=== PATIENT | male | born 1950 | race Hispanic/Latino ===

== ENCOUNTER → 2020-06-05 | Outpatient (CLI) | payer MEDICARE | LOC: CT 07:30 | PROVIDERS: ATTEND Internal Medicine | DX: R55 Syncope and collapse (principal) | CPT/HCPCS: 70450 ==

== ENCOUNTER → 2021-05-31 | Outpatient (CLI) | payer MEDICARE | LOC: MAMMO 08:51 | PROVIDERS: ATTEND Internal Medicine | DX: N62 Hypertrophy of breast (principal) | CPT/HCPCS: 77066 ==

== ENCOUNTER → 2021-07-27 | Outpatient (CLI) | payer MEDICARE | LOC: DX 11:29 | PROVIDERS: ATTEND Internal Medicine | DX: M85.89 Other specified disorders of bone density and structure, multiple sites (principal); S23.41XA Sprain of ribs, initial encounter | CPT/HCPCS: 71101; 77080 ==

== ENCOUNTER → 2021-11-13 | Outpatient (CLI) | payer MEDICARE | LOC: RAD 11:30 | PROVIDERS: ATTEND Internal Medicine | DX: M54.2 Cervicalgia (principal) | CPT/HCPCS: 72040 ==